=== PATIENT | female | born 1995 | race Caucasian/White ===

== ENCOUNTER 2017-10-02 14:17 | Emergency (ER) | payer SELFPAY, OTHER ==
[2017-10-02 15:26] LABS: URINE HCG POC HCG NEGATIVE (Negative)
[2017-10-02 15:32] LABS: BILIRUBIN,URINE NEGATIVE (NEG); CLARITY,URINE CLEAR; COLOR,URINE YELLOW; GLUCOSE,URINE NEGATIVE (NEG); NITRITE,URINE NEGATIVE (NEG); PROTEIN,URINE NEGATIVE (NEG-TRACE); UROBILINOGEN,URINE 0.2 mg/dL (0.2 mg/dL)
[2017-10-02 15:39] LABS: BACTERIA,URINE FEW /HPF (0-FEW); RBC,URINE 0 /HPF (0-2); SQUAMOUS EPITHELIAL CELL,UR FEW /LPF
[2017-10-02] MEDS: HYDROcodone/APAP 5/325MG 1 TAB TABLET PO (16:07)
== END 2017-10-02 16:20 | disposition home or self-care (01) ==
LOC: ER 16:20
DX: R51 Headache (principal); N39.0 Urinary tract infection, site not specified
CPT/HCPCS: 70450; 81001; 81025; 99285-25

== ENCOUNTER 2018-01-28 19:44 | Emergency (ER) | payer SELFPAY ==
[~2018-01-28] VITALS: Ht 160 cm; Wt 68.0 kg
[~2018-01-28 19:44] MED LIST: NITR100C62 PO; PNV1TABL25 PO
[2018-01-28] MEDS ORDERED: MORPHINE SULFATE 4 MG/ML VIAL. IV ONE (20:15)
[2018-01-28] MEDS ORDERED: ONDANSETRON PF 4 MG/2 ML VIAL. IV ONE (20:15)
[2018-01-28 21:00] VITALS: BP 114/70
--- NOTE | 2018-01-28 21:57 | PHYS DOC ---
Past Medical History Past Medical History: Anxiety, Depression Past Surgical History: No Surgical History Alcohol Use: None Drug Use: None Adult General Chief Complaint Chief Complaint: HEAD INJURY/TRAUMA HPI HPI Patient is a 22 year old female who presents with head injury after slipping down the bottom step and striking her head on the hard floor. Patient has a contusion over left frontal scalp. She denies loss of consciousness but reports briefly feeling dazed 1-2 seconds. Denies nature, worsening headache, neck pain , nausea or vomiting. Injury occurred one hour prior to ED arrival. No other pain symptoms or complaints. Patient's currently on her menstrual period [] Review of Systems Review of Systems Review symptoms as per history of present illness. All other review symptoms are negative. All other systems were reviewed and found to be within normal limits, except as documented in this note. Current Medications Current Medications Current Medications Medications (Trade) Dose Ordered Sig/Davis Start Time Stop Time Status Last Admin Dose Admin Morphine Sulfate (Morphine Sulfate) 4 mg 1X ONCE 01/28/18 20:15 01/28/18 20:16 DC 01/28/18 20:23 4 MG Ondansetron HCl (Zofran) 4 mg 1X ONCE 01/28/18 20:15 01/28/18 20:16 DC 01/28/18 20:21 4 MG Allergies Allergies Allergies Coded Allergies Type Severity Reaction Last Updated Verified No Known Drug Allergies 03/16/15 No Physical Exam Physical Exam Constitutional: Well developed, well nourished, no acute distress, non-toxic appearance. [] HENT: Normocephalic, approximately 4 x 4 centimeter contused area over left apical parietal scalp, bilateral external ears normal, no hemotympanum, oropharynx moist, no oral exudates, nose normal. [] Eyes: PERRLA, EOMI. [] Neck: Normal range of motion, no midline tenderness, supple, no stridor. [] Cardiovascular:Heart rate regular rhythm, no murmur [] Lungs & Thorax: Bilateral breath sounds clear to auscultation [] Neurologic: Alert and oriented X 3, radial nerves II through XII grossly intact , normal motor function, normal sensory function, no focal deficits noted. [] Psychologic: Affect normal, judgement normal, mood normal. [] Current Patient Data Vital Signs Vital Signs Date Time Temp Pulse Resp B/P (MAP) Pulse Ox O2 Delivery O2 Flow Rate FiO2 11/5/18 21:30 80 20 100 Room Air 01/28/18 21:00 114/70 (85) 01/28/18 19:50 97.8 97.8 EKG EKG [] Radiology/Procedures Radiology/Procedures [] Course & Med Decision Making Course & Med Decision Making Pertinent Labs and Imaging studies reviewed. (See chart for details) [No loss of consciousness, vomiting, worsening headache other symptoms suggestive of structural brain injury. Headache are improving prior to ED arrival. Imaging not indicated at this time. Patient monitored in the ED without staying of symptoms. Recommend watchful waiting and supportive care. Typical closed head injury instructions provided. Courtesy work note provided. Patient verbalizes understanding and agreement discharge instructions prior to departure..] Dragon Disclaimer Dragon Disclaimer This electronic medical record was generated, in whole or in part, using a voice recognition dictation system. Departure Departure Impression: Primary Impression: Minor head injury without loss of consciousness Additional Impression: Concussion syndrome Disposition: HOME, SELF-CARE Condition: GOOD Patient Instructions: Head Injury, Adult, [id number], Concussion and Brain Injury, [id number] Additional Instructions: Your were evaluated emergency department for headache injury and concussion syndrome. Please take ibuprofen every 6 hours as needed for pain and avoid strenuous physical activity bright lights and stimulating environments for the next 2 days. Have a family member check on you while here sleeping every 2 hours for the next 24 hours. If you develop new or worsening symptoms, please return to the emergency department as this could be a sign of a potentially serious brain injury. Problem Qualifiers SHADE IQBAL DO Jan 28, 2018 21:57
== END 2018-01-28 21:53 | disposition home or self-care (01) ==
LOC: ER 19:44
DX: S00.03XA Contusion of scalp, initial encounter (principal); F07.81 Postconcussional syndrome; F41.9 Anxiety disorder, unspecified; F32.9 Major depressive disorder, single episode, unspecified; W01.0XXA Fall on same level from slipping, tripping and stumbling without subsequent striking against object, initial encounter; Y93.89 Activity, other specified; Y92.89 Other specified places as the place of occurrence of the external cause; Y99.8 Other external cause status
CPT/HCPCS: 96374; 96375; 99284; J2270; J2405

== ENCOUNTER 2018-10-03 10:15 | Emergency (ER) | payer SELFPAY ==
[~2018-10-03] VITALS: Ht 160 cm; Wt 74.8 kg
[2018-10-03 10:56] VITALS: BP 112/72
[2018-10-03 11:28] LABS: BILIRUBIN,URINE NEGATIVE (NEG); CLARITY,URINE CLEAR; COLOR,URINE YELLOW; NITRITE,URINE NEGATIVE (NEG); PH,URINE 7.5; PROTEIN,URINE NEGATIVE (NEG-TRACE); UROBILINOGEN,URINE 0.2 mg/dL (0.2 mg/dL)
[2018-10-03 11:35] LABS: BACTERIA,URINE MODERATE /HPF (0-FEW); SQUAMOUS EPITHELIAL CELL,UR MOD /LPF
--- NOTE | 2018-10-03 11:39 | PHYS DOC ---
Past Medical History Past Medical History: No Pertinent History Past Surgical History: No Surgical History Alcohol Use: Rarely Drug Use: None Adult General Chief Complaint Chief Complaint: BACK PAIN - NO INJURY [facility] HPI Patient is a 22 year old female who presents to the ED today with multiple complaints. Patient is complaining of 7 out of 10 bilateral low back pain worse on the coccyx radiating to bilateral lower extremities, patient states symptoms have been going on for a couple days. Patient is also complaining of abdominal cramping and bloating, she states symptoms have also been going on for a couple days. She describes the low back pain as throbbing and intermittent worse on sitting on her coccyx. Denies anything specifically relieving her symptoms denies any injury. She states yesterday she was seen by the primary care doctor who diagnosed her with UTI and put her on antibiotics which she can't remember the name. She states her UTI symptoms are improving. Patient denies any loss of bowel/ bladder function. Patient is also complaining of constipation, she states she already took coffee and had a normal bowel movement this morning. Patient also states she has a ParaGard IUD, she states she would like to be checked to make sure he is in the right place she states she wants an ultrasound and prefers not to have a pelvic exam. She states she's not had a normal menstrual cycle since the beginning of last month. She states she's done multiple test including one done yesterday which were negative. She states she's been spotting. Review of Systems Review of Systems Constitutional: Denies fever or chills [] Eyes: Denies change in visual acuity, redness, or eye pain [] HENT: Denies nasal congestion or sore throat [] Respiratory: Denies cough or shortness of breath [] Cardiovascular: No additional information not addressed in HPI [] GI: Reports abdominal cramping, constipation, bloating, denies nausea, vomiting, bloody stools or diarrhea [] : Denies dysuria or hematuria [] Musculoskeletal: Reports low back pain worse on the coccyx Integument: Denies rash or skin lesions [] Neurologic: Denies headache, focal weakness or sensory changes [] All other systems were reviewed and found to be within normal limits, except as documented in this note. Allergies Allergies Allergies Coded Allergies Type Severity Reaction Last Updated Verified Sulfa (Sulfonamide Antibiotics) Allergy Severe HIVES 10/03/18 Yes Physical Exam Physical Exam Constitutional: Well developed, well nourished, no acute distress, non-toxic appearance. [] HENT: Normocephalic, atraumatic, bilateral external ears normal, oropharynx moist, no oral exudates, nose normal. [] Eyes: PERRLA, EOMI, conjunctiva normal, no discharge. [] Neck: Normal range of motion, no tenderness, supple, no stridor. [] Cardiovascular:Heart rate regular rhythm, no murmur [] Lungs & Thorax: Bilateral breath sounds clear to auscultation [] Abdomen: Bowel sounds normal, soft, no tenderness, no masses, no pulsatile masses. [] Patient refused a pelvic exam. Skin: Warm, dry, no erythema, no rash. [] Back: No tenderness, no CVA tenderness. [] Extremities: No tenderness, no cyanosis, no clubbing, ROM intact, no edema. [] Neurologic: Alert and oriented X 3, normal motor function, normal sensory function, no focal deficits noted. [] Psychologic: Affect normal, judgement normal, mood normal. [] Current Patient Data Vital Signs Vital Signs Date Time Temp Pulse Resp B/P (MAP) Pulse Ox O2 Delivery O2 Flow Rate FiO2 10/03/18 10:56 98.3 72 14 112/72 (85) 97 Room Air 98.3 Lab Values Laboratory Tests Test 10/03/18 11:20 10/03/18 11:21 Urine Collection Type Unknown Urine Color Yellow Urine Clarity Clear Urine pH 7.5 Urine Specific [place] 1.010 Urine Protein Negative mg/dL (NEG-TRACE) Urine Glucose (UA) Negative mg/dL (NEG) Urine Ketones (Stick) Negative mg/dL (NEG) Urine Blood Large (NEG) Urine Nitrite Negative (NEG) Urine Bilirubin Negative (NEG) Urine Urobilinogen Dipstick 0.2 mg/dL (0.2 mg/dL) Urine Leukocyte Esterase Moderate (NEG) Urine RBC 6-10 /HPF (0-2) Urine WBC 11-20 /HPF (0-4) Urine Squamous Epithelial Cells Mod /LPF Urine Bacteria Moderate /HPF (0-FEW) POC Urine HCG, Qualitative Hcg negative (Negative) EKG EKG [] Radiology/Procedures Radiology/Procedures []PROCEDURE: LUMBAR SPINE 2-3V Lumbar spine radiograph 10/03/2018 Comparison: None. Indication: Pain. Findings: 3 views of the lumbar spine demonstrate no acute fracture or subluxation. There are five lumbar type vertebral bodies. The alignment is within normal limits. The vertebral bodies demonstrate normal height. The intervertebral disc spaces are well maintained. Impression: No acute fracture or malalignment of the lumbar spine. Electronically signed by: Joshua Silva MD (10/03/2018 11:53 AM) [id number] DICTATED and SIGNED BY: JOSHUA SILVA MD DATE: 10/03/18 1153 PROCEDURE: PELVIS W/TV PELVIS W/TV History: IUD location, pelvic pain Comparison: None. Findings: Multiple transabdominal sonographic images of the pelvis are submitted. There is IUD present in the uterus. Maternal adnexal regions are not well visualized. Transvaginal ultrasound: Multiple transvaginal sonographic images of the pelvis are submitted. There is mild free fluid in the pelvis. Uterus measured 8.8 x 7.1 x 5.6 cm. There is IUD present in the uterus closer to the fundus. Right ovary measured 3.5 x 3.1 x 2.5 cm, normal low resistance vascularity. There is a heterogeneous complex lesion of the right ovary about 3.1 x 2.3 x 2 cm in size not associated with significant hypervascularity internally, internal echoes present with areas of likely cystic change. There is also hypoechoic lesion of the right ovary up to 1.7 cm likely a dominant follicle. Left ovary measured 2.5 x 2.8 x 1.9 cm, normal low resistance vascularity of the left ovary. There is no submitted endometrial measurement, does not appear significantly thickened. Impression: 1. There is mild nonspecific free fluid in the pelvis. There is IUD present in the uterus. There is a heterogeneous, avascular, complex appearing lesion of the right ovary, sequela of hemorrhagic cyst considered most likely. Given complex features, short-term follow-up imaging in 2-3 months is advised. Electronically signed by: Corey Carpio MD (10/03/2018 12:27 PM) [id number] DICTATED and SIGNED BY: COREY CARPIO MD DATE: 10/03/18 1227 Course & Med Decision Making Course & Med Decision Making Pertinent Labs and Imaging studies reviewed. (See chart for details) This is a 22-year-old female patient presented to the ED today with multiple complaints including low back pain radiating to bilateral lower extremities for couple days, lower abdominal pain with cramping for couple days, constipation. She states she read he had a bowel movement this morning so she is not concerned about her constipation anymore. She is requesting a pelvic ultrasound to check her IUD. She states she did not have a normal menstrual cycle last month, she states she only spotted for couple days. She states she was diagnosed with UTI by her PCP yesterday and is already on antibiotics. Urine hCG is negative. Urine analysis is noted for infection-patient is on antibiotics. She started then yesterday, unfortunately she doesn't know the name. We will let her continue taking the medications because she is only taking 2 in. Lumbar spine x-rays were negative for any acute findings. Pelvic ultrasound was noted for mild nonspecific fluid in the pelvis, IUD is in the uterus, also noted for complex cyst on the right ovary likely hemorrhagic cyst. Patient was instructed to follow-up with the PCP/[facility] and have repeat ultrasound as recommended by radiologist. Patient was discharged to home. Given prescription for cyclobenzaprine and diclofenac for her pain. Dragon Disclaimer Dragon Disclaimer This electronic medical record was generated, in whole or in part, using a voice recognition dictation system. Departure Departure Impression: Primary Impression: Low back pain Additional Impressions: Hemorrhagic cyst of right ovary UTI (urinary tract infection) Disposition: 01 HOME, SELF-CARE Condition: STABLE Referrals: KRISTI AVILES MD (PCP) follow up with your doctor next week Patient Instructions: Back Pain, Adult, [id number], Ovarian Cyst, Urinary Tract Infection Additional Instructions: You were evaluated in the emergency room for back pain/coccyx pain. Your lumbar spine x-rays are negative for any acute findings. Your IUD is in the right place. Your right hemorrhagic cyst on your right ovary, this typically heals on its on but needs to be followed up with your [facility] or primary care doctor and they will do a follow-up ultrasound in a couple weeks. Take the prescribed medications as ordered. Apply heat to the abdomen it will help with the pain. Scripts Diclofenac Sodium (DICLOFENAC SODIUM) 50 Mg Tablet.dr 1 TAB PO BID, #20 TAB 2 Refills Prov: CSAR LAKHANI APRN 10/03/18 Cyclobenzaprine Hcl (CYCLOBENZAPRINE HCL) 10 Mg Tablet 1 TAB PO TID, #30 TAB Prov: SCAR LAKHANI APRN 10/03/18 Problem Qualifiers Primary Impression: Low back pain Chronicity: acute Back pain laterality: bilateral Sciatica presence: with sciatica Sciatica laterality: bilateral sciatica Qualified Codes: M54.42 - Lumbago with sciatica, left side; M54.41 - Lumbago with sciatica, right side Additional Impressions: UTI (urinary tract infection) Urinary tract infection type: site unspecified Hematuria presence: without hematuria Qualified Codes: N39.0 - Urinary tract infection, site not speci fied SCAR LAKHANI APRN Oct 03, 2018 11:39
--- NOTE | 2018-10-03 11:55 | RAD ---
Lumbar spine radiograph 10/03/2018 Comparison: None. Indication: Pain. Findings: 3 views of the lumbar spine demonstrate no acute fracture or subluxation. There are five lumbar type vertebral bodies. The alignment is within normal limits. The vertebral bodies demonstrate normal height. The intervertebral disc spaces are well maintained. Impression: No acute fracture or malalignment of the lumbar spine. Electronically signed by: Liliana Langston MD (10/03/2018 11:53 AM) [id number]
--- NOTE | 2018-10-03 12:29 | RAD ---
PELVIS W/TV History: IUD location, pelvic pain Comparison: None. Findings: Multiple transabdominal sonographic images of the pelvis are submitted. There is IUD present in the uterus. Maternal adnexal regions are not well visualized. Transvaginal ultrasound: Multiple transvaginal sonographic images of the pelvis are submitted. There is mild free fluid in the pelvis. Uterus measured 8.8 x 7.1 x 5.6 cm. There is IUD present in the uterus closer to the fundus. Right ovary measured 3.5 x 3.1 x 2.5 cm, normal low resistance vascularity. There is a heterogeneous complex lesion of the right ovary about 3.1 x 2.3 x 2 cm in size not associated with significant hypervascularity internally, internal echoes present with areas of likely cystic change. There is also hypoechoic lesion of the right ovary up to 1.7 cm likely a dominant follicle. Left ovary measured 2.5 x 2.8 x 1.9 cm, normal low resistance vascularity of the left ovary. There is no submitted endometrial measurement, does not appear significantly thickened. Impression: 1. There is mild nonspecific free fluid in the pelvis. There is IUD present in the uterus. There is a heterogeneous, avascular, complex appearing lesion of the right ovary, sequela of hemorrhagic cyst considered most likely. Given complex features, short-term follow-up imaging in 2-3 months is advised. Electronically signed by: Kvng Pena MD (10/03/2018 12:27 PM) [id number]
[2018-10-03] MEDS ORDERED: CYCL10TA2 PO (12:44)
[2018-10-03] MEDS ORDERED: DICL50TA4 PO (12:44)
== END 2018-10-03 12:55 | disposition home or self-care (01) ==
LOC: ER 10:15
DX: M54.41 Lumbago with sciatica, right side (principal); M54.42 Lumbago with sciatica, left side; N83.201 Unspecified ovarian cyst, right side; N39.0 Urinary tract infection, site not specified; K59.00 Constipation, unspecified; Z88.2 Allergy status to sulfonamides
CPT/HCPCS: 72100; 76830; 76856; 81001; 81025; 87086; 99285-25

== ENCOUNTER 2020-08-15 21:50 | Emergency (ER) | payer SELFPAY ==
[2018-10-11 13:22] VITALS: BP 135/66
[~2020-08-15 21:50] MED LIST changes: +CEPH-264 PO; +CYCL10TA2 PO; +DICL50TA4 PO
== END 2020-08-15 23:19 | disposition left against medical advice (07) ==
LOC: ER 21:50
DX: R20.0 Anesthesia of skin (principal); R22.42 Localized swelling, mass and lump, left lower limb; Z53.21 Procedure and treatment not carried out due to patient leaving prior to being seen by health care provider